=== PATIENT | male | born 1970 | race Two or more races ===

== ENCOUNTER 2021-01-27 22:19 | Emergency (ER) | payer SELFPAY ==
[~2021-01-27] VITALS: Ht 175.3 cm; Wt 87.1 kg
--- NOTE | 2021-01-27 22:36 | NUR ---
PT BIBS C/O "FEELING LIKE SUGAR MIGHT BE LOW OR HIGH" +NAUSEA HX OF DM. PLACED IN BED 9 ON MONITOR AND PULSE OX.
[2021-01-27] MEDS ORDERED: INSULIN REGULAR, HUMAN 100 UNIT/ML 10 ML VIAL ONE (23:20)
[2021-01-27] MEDS ORDERED: ONDANSETRON HCL/PF 4 MG/2 ML VIAL ONE (23:20)
[2021-01-27 23:27] LABS: BILIRUBIN,URINE NEGATIVE (NEGATIVE); COLOR,URINE YELLOW (YELLOW); LEUKOCYTE ESTERASE ,URINE NEGATIVE (NEGATIVE); NITRITE, URINE POSITIVE (NEGATIVE); PROTEIN,URINE NEGATIVE (NEGATIVE); UGLUCOSE >=1000 mg/dL (NEGATIVE); UROBILINOGEN,URINE 0.2 EU/dL (0.2)
[2021-01-27] MEDS ORDERED: ONDANSETRON HCL/PF 4 MG/2 ML VIAL IVP ONE (23:30)
[2021-01-27] MEDS ORDERED: IV NS 0.9% 1,000 ML BAG IV ONE (23:30)
[2021-01-27] MEDS ORDERED: INSULIN REGULAR, HUMAN 100 UNIT/ML 10 ML VIAL IV ONE (23:30)
--- NOTE | 2021-01-27 23:30 | NUR ---
Note [email or web address] in EDM - 01/28/21 at 0138 by ALAN BIBS C/O "FEELING LIKE SUGAR MIGHT BE LOW OR HIGH" +NAUSEA HX OF DM2. DENIES AND ABD PAIN OR VOMITTING. BREATHING IS EVEN AND UNLABORED. PLACED ON THE MONITOR AND PULSE OX AND ALL V/S STABLE.
[2021-01-27 23:40] LABS: BASOPHILS # (AUTO) 0.1 K/uL (0.0-0.2); BASOPHILS % (AUTO) 0.7 % (0.0-2.0); EOSINOPHILS % (AUTO) 0.4 % (0.0-6.0); HEMATOCRIT 45 % (39-51); HEMOGLOBIN 15.5 g/dL (13.5-17.5); LYMPHOCYTES # (AUTO) 0.8 K/uL (0.8-4.8); LYMPHOCYTES % (AUTO) 8.9 % (20.0-44.0); MEAN CORPUSCULAR HGB CONC 35 g/dl (31.0-36.0); MEAN CORPUSCULAR VOLUME 86 fL (80-96); MONOCYTES # (AUTO) 0.3 K/uL (0.1-1.30); MONOCYTES % (AUTO) 3.4 % (2.0-12.0); NEUTROPHILS # (AUTO) 7.8 K/uL (1.8-8.9); NEUTROPHILS % (AUTO) 86.6 % (43.0-81.0); PLATELET COUNT (AUTO) 235 K/uL (150-450)
[2021-01-27 23:40] LABS: BACTERIA,URINE 1+ /HPF (None Seen); RBC,URINE NONE SEEN /HPF (0-2); WBC,URINE NONE SEEN /HPF (0-3)
--- NOTE | 2021-01-28 00:06 | NUR ---
URINE COLLECTED AND SENT TO LAB
[2021-01-28 00:07] LABS: ALANINE AMINOTRANSFERASE 30 U/L (12-78); ALBUMIN 4.3 g/dL (3.4-5.0); ALKALINE PHOSPHATASE 115 U/L (46-116); ASPARTATE AMINOTRANSFERASE 10 U/L (15-37); BILIRUBIN,DIRECT 0.1 mg/dL (0.0-0.2); BILIRUBIN,TOTAL 0.4 mg/dL (0.2-1.0); CALCIUM, SERUM 8.7 mg/dL (8.5-10.1); CARBON DIOXIDE 25 mmol/L (21-32); CHLORIDE 95 mmol/L (98-107); GLUCOSE 321 mg/dL (74-106); LIPASE 80 U/L (73-393); POTASSIUM 4.2 mmol/L (3.5-5.1); SODIUM SERUM 131 mmol/L (136-145); UREA NITROGEN, BLOOD 10 mg/dL (7-18)
[2021-01-28 01:25] VITALS: BP 132/75
--- NOTE | 2021-01-28 01:28 | NUR ---
Patient discharged to home in stable condition. Written and verbal after care instructions given. Patient verbalizes understanding of instruction. Pt ambulated out of ED. VSS.
--- NOTE | 2021-01-28 01:28 | NUR ---
IV removed. Catheter intact and site benign. Pressure and 4x4 applied to site. No bleeding noted.
== END 2021-01-28 01:38 | disposition home or self-care (01) ==
LOC: ER 22:23
DX: E11.65 Type 2 diabetes mellitus with hyperglycemia (principal); Z91.14 Patient's other noncompliance with medication regimen
CPT/HCPCS: 36415; 71045; 80048; 80076; 81001; 82010; 82962 ×3; 83690; 84484; 85025; 85730; 87086; 93005; 96361; 96374; 96375; 99285; J1815; J2405; J7030